=== PATIENT | male | born 1960 | race African-American/Black ===

== ENCOUNTER 2020-12-31 06:14 | Day surgery (SDC) | payer MEDICARE ==
[2020-12-28 11:22] LABS: COVID AG,FIA SOURCE NASOPHARYNGEAL
[~2020-12-31] VITALS: Ht 180.3 cm; Wt 195.0 kg
[2020-12-31] MEDS ORDERED: ALBUTEROL SULFATE 5 MG/ML 20 ML NEB SOLN [BULK] NEB ONE (06:15)
[2020-12-31] MEDS ORDERED: LIDOCAINE 2% 30 ML JELLY TP ONE (06:15)
[2020-12-31] MEDS ORDERED: BENZOCAINE 20% 50 MCG/SPRAY 57 GM TP ONE (06:15)
[2020-12-31] MEDS ORDERED: LIDOCAINE 4% 50 ML SOLUTION TP ONE (06:15)
[2020-12-31] MEDS ORDERED: SODIUM CHLORIDE 0.9% 1,000 ML IV ONE (06:30)
[2020-12-31] MEDS ORDERED: SODIUM CHLORIDE 0.9% 1,000 ML ONE (06:45)
[2020-12-31] MEDS ORDERED: ATOR10TA84 PO (06:47)
[2020-12-31] MEDS ORDERED: ALBU8HFA IH (06:47)
[2020-12-31] MEDS ORDERED: DYRE50 PO (06:47)
[2020-12-31] MEDS ORDERED: ATEN-73 PO (06:47)
[2020-12-31] MEDS ORDERED: BACL20TA PO (06:47)
[2020-12-31] MEDS ORDERED: CETI-450 PO (06:47)
[2020-12-31] MEDS ORDERED: MONT-35 PO (06:47)
[2020-12-31] MEDS ORDERED: CHOL200016 PO (06:47)
[2020-12-31] MEDS ORDERED: FAMO40TA7 PO (06:47)
[2020-12-31] MEDS ORDERED: DULO30CA96 PO (06:47)
[2020-12-31] MEDS ORDERED: GLIP5 PO (06:47)
[2020-12-31] MEDS ORDERED: METF-960 PO (06:47)
[2020-12-31] MEDS ORDERED: HYDR50TA36 PO (06:47)
[2020-12-31] MEDS ORDERED: MIDAZOLAM HCL 2 MG/2 ML VIAL ONE (07:38)
[2020-12-31] MEDS ORDERED: FentaNYL CITRATE PF 100 MCG/2 ML VIAL ONE (07:38)
[2020-12-31 07:58] LABS: GLUCOMETER DEV NAME(LOC) SDS.; GLUCOSE,POINT OF CARE 133 MG/DL (70-110)
[2020-12-31] MEDS ORDERED: MethylPREDNISolone SOD SUCC 125 MG/2 ML VIAL IVP ONE (09:00)
[2020-12-31] MEDS ORDERED: MethylPREDNISolone SOD SUCC 125 MG/2 ML VIAL ONE (09:02)
[2020-12-31] MEDS ORDERED: OXYGEN THERAPY IH SCH (20:00)
== END 2020-12-31 10:15 | disposition home or self-care (01) ==
LOC: SURGERY 06:14
PROVIDERS: ATTEND Internal Medicine Critical Care Medicine
DX: J38.4 Edema of larynx (principal); B37.0 Candidal stomatitis; J45.909 Unspecified asthma, uncomplicated; I10 Essential (primary) hypertension; Z79.899 Other long term (current) drug therapy
CPT/HCPCS: 31623; 31624; 71045; 82962; 87015; 87070; 87101; 87205; 87206; 87220; 87426; 88108; 88312; C9803; J2250; J2930; J3010; J7030; J7611; Z7610